=== PATIENT | female | born 1940 | race Caucasian/White ===

== ENCOUNTER 2020-05-18 13:01 | Inpatient (IN) | payer OTHER, MEDICAID ==
[~2020-05-18] VITALS: Ht 162.6 cm; Wt 48.5 kg
--- NOTE | ~2020-05-18 | CON ---
[address] [address] CONSULTATION Name: DANILO ESPINOZA Room: [address] IN M.R.#: [id number] Admission: 05/18/20 Attend Phys: Ariana Vora Discharge: Date of : 40 Report #: [id number] THIS REPORT FOR: //name// cc: Ev Peters MD, Regina MD ~ DATE OF SERVICE: 05/21/2020 HISTORY OF PRESENT ILLNESS: This is a 79-year-old female patient who was evaluated by me for generalized weakness and altered mental status. The patient does not provide much history. The patient lives with her son who provided history. He tells me that the [place] state, but her memory was poor and she has other health issues and she came to live with him. He noticed about 2-3 weeks ago, she started getting weak, weakness was all over the body. She started losing speech also, but that happened about 2-3 days ago. There was nothing he knows of which started this process. He does not know any aggravating or relieving factors. She was brought to the Emergency Room and in the Emergency Room her pCO2 was 84. Subsequently, it came down to 53.5. She also had multiple other problems and those problems include low blood pressures in 90s. He is not sure how long that is going on. She answers yes and no questions, but her speech is markedly dysarthric. It is barely understandable. She is weak in all 4 extremities, more or so in the lower extremities than upper extremities. REVIEW OF SYSTEMS: A 14-point review of system was carried out, partly from the record and partly from the patient. It looks like Cardiology is seeing this patient for atrial fibrillation. This patient has a history of acute congestive heart failure. She does have a history of peripheral vascular disease and she is being followed by Vascular Surgery and looks like this patient has a pretty severe disease on her Doppler. She does not have any prior history of stroke, but looks like she has heart failure. SHE IS ALLERGIC TO DYE. She is anticoagulated with Eliquis. She does have shortness of breath. That was a relevant 14-point review of system. PAST MEDICAL HISTORY: Positive for what looks like dementia because her memory was decreasing. FAMILY HISTORY: Positive for stroke in the patient's son, but he says the etiology is not clear. SOCIAL HISTORY: This patient has a history of smoking. She drinks alcohol only on special occasions. PHYSICAL EXAMINATION: Indicates she is alert. She tries to talk. Her speech is severely dysarthric. Sometime she can talk and say a few words. When I asked her what month it is, she could not tell me what month it is. She did not know what hospital she is in. Cranial nerve examination 2-12 [place] [address] CONSULTATION Name: DANILO ESPINOZA Room: [address] IN ..#: [id number] Admission: 05/18/20 Attend Phys: Ariana Vora Discharge: Date of : 40 Report #: [id number] She has pretty significant dysarthria, but otherwise does not appear to be showing any focality, exam is incomplete because I cannot do visual field because she is unable to cooperate. She is profoundly weak in all 4 extremities. This is more so in the lower extremities than upper extremities. She can barely lift her leg above the bed if she can do it at all, but she does reasonably well with position sense. Her reflexes are absent in the lower extremities. I believe her plantars are upgoing, but it may be withdrawal. She does [id number] reasonably well. There is no carotid bruit. There is no meningeal sign in this patient. She did not have any imaging study of the brain. IMPRESSION: This patient has profound weakness in all 4 extremities. Some of the causes or contributing factors are obvious in that regard. She has a low blood pressure. Her pCO2 was very high and looks like her chest x-ray was abnormal. All of it can be contributing to the patient's symptoms, but the patient also has pretty significant speech difficulty, because of that the possibility of myasthenia gravis brainstem stroke or spine lesion need to be excluded. I will start the patient's evaluation with MRI of the brain and lumbar spine and see what it shows. We will get some more blood workup as ordered. We will get evaluation by Vascular Surgery because looks like she has pretty severe vascular insufficiency in the lower extremities. Further workup will depend upon the outcome of this testing. I discussed all of it with the patient. I do not think she understands, I discussed with the patient's son and he wants to proceed with this. More than 50 minutes of time was spent taking care of this patient today and majority was spent counseling and coordinating. By: [id number] Xavier MD /nt
[2020-05-18 13:20] VITALS: BP 128/91
[2020-05-18 14:06] LABS: ABSOLUTE LYMPHOCYTES 1.1 thou/uL (0.8-5.3); ABSOLUTE MONOCYTES 0.4 thou/uL (0.0-1.2); ABSOLUTE NEUTROPHILS 4.9 thou/uL (1.6-8.1); BASOPHILS 0.4 %; EOSINOPHILS 0.5 %; HEMATOCRIT 34.6 % (37.0-47.0); LYMPHOCYTES 17.3 %; MCH 29.9 pg (26.0-34.0); MCHC 31.8 g/dL (28.0-37.0); MCV 94.1 fL (80.0-100.0); MONOCYTES 6.2 %; MPV 8.3 fl. (7.2-11.1); NUCLEATED RBCS 0 /100WBC; PLATELET COUNT* 247 thou/uL (150-400); POLYS 75.6 %; RBC 3.68 mil/uL (4.20-5.00); RDW-CV 16.7 % (10.5-14.5); WBC 6.4 thou/uL (4.0-11.0)
[2020-05-18 14:12] LABS: CALCIUM 9.2 mg/dL (8.5-10.1); INR 1.3; POTASSIUM 4.3 mmol/L (3.5-5.1); PROTIME 13.2 Seconds (9.20-11.50)
[2020-05-18 14:23] LABS: ALBUMIN 3.3 g/dL (3.4-5.0); TOTAL BILIRUBIN 0.7 mg/dL (<0.1-1.0); TOTAL PROTEIN 7.5 g/dL (6.4-8.2)
[2020-05-18 14:52] LABS: BE 1.2 mmol/L (-2 to +3); PCO2 44.6 mmHg (35.0-45.0); PO2 73.3 mmHg (75.0-100.0); pH 7.391 (7.340-7.450)
[2020-05-18] MEDS ORDERED: ASA81BEC PO (15:10)
[2020-05-18] MEDS ORDERED: ROSUVASTATIN CA10 MG PO (15:11)
[2020-05-18] MEDS ORDERED: TYLENOL325 M1 PO (15:12)
[2020-05-18] MEDS ORDERED: MAGNESIUM250 M1 PO (15:13)
[2020-05-18] MEDS ORDERED: GLUCOPHAGE1000 MG PO (15:14)
[2020-05-18] MEDS ORDERED: ELIQUIS5 MG PO (15:16)
[2020-05-18] MEDS ORDERED: GLIMEPIRIDE4 MG PO (15:16)
[2020-05-18] MEDS ORDERED: LISINOPRIL2.5 MG PO (15:17)
[2020-05-18] MEDS ORDERED: JARDIANCE25 MG PO (15:18)
[2020-05-18] MEDS ORDERED: BARACLUDE0.5 MG PO (15:18)
[2020-05-18 17:00] VITALS: BP 100/59
[2020-05-18 17:10] VITALS: BP 101/60
--- NOTE | 2020-05-18 19:13 | NUR ---
RECEIVED REPORT FROM ER NURSE. PT ARRIVED TO TELE FLOOR AROUND 1710, ASSUMED CARE. PT ORIENTED TO ROOM BED AND CALL LIGHT, COMMUNICATES UNDERSTANDING BUT IS FORGETFUL AND NEEDS SOME REINFORCEMENT. DILTIAZEM GTT GOING AT 10MG/HR. BP SOFT BUT STABLE. ADMISSION ASSESSMENT, HISTORY AND EDUCATION COMPLETED CHARTED. MEDS REC COMPLETED. CARDIOLOGY CONSULTED, SPOKE TO DR TROTTER. PT ABLE TO EAT DINNER. LASIX GIVEN EARLY PER ORDER BY DR TROTTER. PT CURRENTLY RESTING IN BED WATCHING TV. CALL LIGHT IS WITHIN REACH. HOURLY ROUNDING PERFORMED. FALL PRECAUTIONS IN PLACE.
[2020-05-18 20:00] VITALS: BP 111/71
[2020-05-19] VITALS: BP 127/72
[2020-05-19 01:07] LABS: CALCIUM 8.8 mg/dL (8.5-10.1); CREATININE 0.9 mg/dL (0.6-1.3); POTASSIUM 4.6 mmol/L (3.5-5.1)
[2020-05-19 04:00] VITALS: BP 136/49
[2020-05-19 05:37] LABS: BE -0.8 mmol/L (-2 to +3); PO2 123.2 mmHg (75.0-100.0); pH 7.306 (7.340-7.450)
[2020-05-19 05:44] LABS: PCO2 53.5 mmHg (35.0-45.0)
[2020-05-19 05:50] LABS: BE -5.4 mmol/L (-2 to +3)
[2020-05-19 05:54] LABS: pH 7.103 (7.340-7.450)
[2020-05-19 05:56] LABS: PCO2 84.1 mmHg (35.0-45.0); PO2 161.2 mmHg (75.0-100.0)
--- NOTE | 2020-05-19 07:30 | NUR ---
ASSUMED CARE OF PT AFTER REPORT AT 1930. PT A&OX3. FORGETFUL. VSS. PHYSICAL ASSESSMENT COMPLETED AND CHARTED. PT COMPLAINED OF SOB-O2 78% RR 40-50'S-INCREASED O2 TO 15L BUT STILL TACHYPNEIC AND O2 SAT 87%. DR SANDERS MADE AWARE WITH NEW ORDERS. PLACED ON BIPAP- O2 SAT 98%. SCHRADER CATHETER INSERTED. STOPPED CARDIZEM DRIP THIS HR GET LOW 54 BPM-STILL AFIB. DYSPHAGIA NOTED-ST CONSULT. FALL PRECAUTIONS IN PLACED. CALL LIGHT WITHIN REACH.
[2020-05-19 08:35] VITALS: BP 126/58
--- NOTE | 2020-05-19 12:13 | EKG ---
[place] [address] ELECTROCARDIOGRAM REPORT Name: DANILO ESPINOZA Emma Room: [address] ADM IN ..#: [id number] Admission: 05/18/20 Attend Phys: Kyra Almeida Discharge: Date of : 40 Date of Service: 05/18/20 1316 Report #: [id number] THIS REPORT FOR: //name// [facility] ED Test Date: 2020-05-18 Test Time: 13:16:48 Pat Name: DANILO ESPINOZA Department: Room: [facility] Gender: F [employer] Manager: HELENA : 1940 Requested By: Anselmo Hackett Order Number: [id number] MD: Guy Kaur Measurements Intervals [place] Rate: 115 P: MO: QRS: 58 QRSD: 84 T: 256 QT: 361 QTc: 500 Interpretive Statements Atrial fibrillation Paired ventricular premature complexes Low voltage, extremity leads Repol abnrm suggests ischemia, diffuse leads Baseline wander in lead(s) V4 No previous ECG available for comparison Electronically Signed On 05-19-2020 12:13:18 CDT by Guy Kaur [email or web address] <ELECTRONICALLY SIGNED> By: Db Kaur MD, FACC 05/19/20 1213 15 Db Kaur MD, FACC /EPI
[2020-05-19 15:23] VITALS: BP 130/57
[2020-05-19 16:00] VITALS: BP 101/48
--- NOTE | 2020-05-19 18:30 | NUR ---
RECEIVED REPORT. ASSUMED CARE OF PT AROUND 0730. AM ASSESSMENT AND VITALS COMPLETED CHARTED. MEDS PER EMAR. DILTIAZEM GTT RESTARTED PER CARDIOLOGY. PT ABLE TO COME OFF THE BIPAP AND BE ON 3L PER NC. APPETITE FAIR. SCHRADER IN PLACE TO DD. PT TURNED Q2HRS AND PRN. NO BM THIS SHIFT. SON AT BEDSIDE. PT CURRENTLY RESTING IN BED. CALL LIGHT IS WITHIN REACH. HOURLY ROUNDING PERFORMED.
[2020-05-19 20:00] VITALS: BP 107/46
[2020-05-19 22:16] LABS: INFLUENZA A ANTIGEN Negative (Negative); INFLUENZA B ANTIGEN Negative (Negative)
[2020-05-20] VITALS: BP 135/60
[2020-05-20 04:04] VITALS: BP 134/68
--- NOTE | 2020-05-20 05:59 | NUR ---
ASSUMED CARE OF PT AFTER REPORT AT 1930. PT A&OX3. FORGETFUL AT TIMES. VSS. PHYSICAL ASSESSMENT COMPLETED AND CHARTED. PT ON O2 AT 3L NC/BIPAP AT HS. PT TRACING AFIB ON TELE-MAINTAINE DON CARDIZEM DRIP. PT WITH SCHRADER TO DEPENDENT DRAIN. PT DENIES ANY PAIN. FALL PRECAUTIONS IN PLACE. CALL LIGHT WITHIN REACH.
[2020-05-20 08:00] VITALS: BP 111/58
--- NOTE | 2020-05-20 08:57 | NUR ---
WOUND NURSE: PATIENT SEEN THIS MORNING BY LYLY JOAQUIN TO ADDRESS CIRCULARTORY STATUS BLE AND WOUND LEFT GEAT TOE. PRESENTS ON MEDIAL ASPECT OF LEFT GREAT TOE, MEASURES 2.6 X 1.6 CM AND FULLY COVERED WITH ROUGH DRY BLACKENED STABLE ESCHAR. THERE IS NO DRAINAGE NOTED. FOOT IS COLD AND RUBOR PRESENT. CAPILLARY REFILL WAS 8 SECONDS ON THE LEFT. RIGHT FOOT WAS WARM AND CAPILLARY REFILL WAS 2 TO 3 SECONDS. APPEARS REDDENED IN COLOR. THERE WAS 2+ PITTING EDEMA ON THE RIGHT FOOT. I WAS UNABLE TO DOPPLAR PEDAL PULSES BILATERALLY. PATIENT REPORTING WOUND IS A YEAR OLD. PATIENT NOT COMPLAINING OF PAIN OR DISCOMFORT AT THIW TIME. PATIENT IS CONFUSED AND DISORIENTED AND NONTEACHEABLE WHEN ASSESSED BY THIS NURSE. SWABBED THE LEFT TOE WOUND WITH CHLORHEXIDINE SWAB AND LET DRY, THEN LEFT OPEN TO AIR.
--- NOTE | 2020-05-20 09:30 | NUR ---
ASSUMED CARE OF PT THIS AM AROUND 0715- TASSEL SNIPPER IN PLACE ORDERED, TRACING A-FIB, RATE CONTROLED ON CARDIZEM DRIP, PO CARDIZEM STARTED THIS AM PER CARDIO WITH 1ST DOSE GIVEN AND CARDIZEM TO BE D/C'D SHORTLY- PT A&O X2-3 WITH NOTED FORGETFULLNESS- CONT OF BOWEL , SCHRADER IN PLACE D/D CLEAR YELLOW URINE- Q2 HOUR TURNS IN PLACE INDICATED- LCTA, RESP EVEN AND UN-LABORED- VSS, O2 SAT 93% ON 2L VIA NC- ABD SOFT/ROUND/NON-TENDER, BS X4 QUADS- LAST BM UNKOWN AT THIS TIME- IV NOTED TO RIGHT FA WITH IV CARDIZEM INFUSSING PRESCRIBED, IV NOTED TO LEFT AC INTACT AND SL- SET UP ASSIST REQUIRED WITH MEALS, FAIR PO INTAKE NOTED THIS AM- LEFT FOOT NOTED WITH ULCER TO LEFT GREAT TOE WITH DRIED ESCHAR; WN HERE TO ASSESS WELL VACULAR WITH WC ORDERS INITIATED AND UPDATED TO MAR- ABSENT PEDAL PULSES NOTED DENISA, US ORDERED PER VASCULAR- RLE NOTED WITH GOOD CAP REFIL, LLE CAP REFIL >7 AND COOL TO TOUCH- PT DENIES ANY C/O PAIN/DISCOMFORT AT THIS TIME- CALL LIGHT AND PERSONAL BELONGINGS WITH IN REACH- HOURLY ROUNDS IN PLACE R/T SAFETY/NEEDS- ALL NEEDS MET AT THIS TIME-WCTM
--- NOTE | 2020-05-20 09:41 | NUR ---
Nutrition: Pt admitted with HF. Consult for wound on Lt great toe x1 yr. Per notes, wound to be left to open air. 2gm Na diet, fair appetite. Albumin 3.3, BG 200s. Meds: glimeperide, solumedrol, lasix. H/o PAD, afib, DM, hep B. Admit wts 115# (today's wt 109# - different than the other wts). Will follow wt trends. Will add CHO count to diet order for better BG control. Otherwise, mild risk.
--- NOTE | 2020-05-20 11:31 | NUR ---
CM spoke with Pt's son via phone. Pt has lived with them for the past month, post moving here from [place]. Pt is normally A&O, but son has noticed increased confusion with Pt. Pt uses a walker for mobility. No home o2. No hx of HH or SNF. Son indicates that Pt was recently seen at [facility] for a UTI. Therapy evals ordered. Vascular and cardiology consulted. Pt's DIL works at [employer], if Pt needs SNF/LTC that is where son would want her vs. home with HH. CM contacted [facility] and faxed initial referral. Son to bring DPOA/AD paperwork to the hospital this afternoon. Anticipate dc in 1-2 days. CM requested that [facility] initiate ins auth if able to accept.
[2020-05-20 12:36] VITALS: BP 128/60
[2020-05-20 15:16] LABS: URINE BILIRUBIN NEGATIVE (Negative); URINE BLOOD 1+ (Negative); URINE CLARITY CLEAR; URINE COLOR YELLOW; URINE GLUCOSE-RANDOM 3+ (Negative); URINE KETONES NEGATIVE (Negative); URINE LEUKOCYTES-REFLEX NEGATIVE (Negative); URINE NITRITE-REFLEX NEGATIVE (Negative); URINE PROTEIN NEGATIVE (Negative); URINE UROBILINOGEN 0.2 E.U./dl (0.2-1.0)
[2020-05-20 15:27] LABS: BACTERIA-REFLEX 1-9 Few /HPF (None Seen); CASTS None Seen /LPF (None Seen); CRYSTALS None Seen /LPF (None Seen); SQUAMOUS 0-3 Few /LPF (0-3); URINE RBC 3-10 Few /HPF (0-2); URINE WBC-REFLEX 0-5 Rare /HPF (0-5)
[2020-05-20 16:57] VITALS: BP 95/43
--- NOTE | 2020-05-20 17:06 | 2DMMODE ---
[place] [address] 2 D/M-MODE ECHOCARDIOGRAM Name: ESPINOZADANILO H Room: [address] IN .R.#: [id number] Admission: 05/18/20 Attend Phys: Kyra Almeida Discharge: Date of : 40 Date of Service: 05/20/20 1705 Report #: [id number] THIS REPORT FOR: cc: Ev Peters MD,Ev Alvarado,Michi Parker MD [facility] ~ APPROVED REPORT Study performed: 05/20/2020 14:10:09 EXAM: Comprehensive 2D, Doppler, and color-flow Echocardiogram Patient Location: Bedside BSA: 1.55 HR: 99 bpm BP: 111/58 mmHg Other Information Study Quality: Good Indications Congestive Heart Failure Atrial Fibrillation 2D Dimensions IVSd: 11.40 (7-11mm) LVOT Diam: 17.13 (18-24mm) LVDd: 40.76 mm PWd: 13.55 (7-11mm) Ascending Ao: 32.35 (22-36mm) LVDs: 43.85 (25-40mm) Aortic Root: 26.17 mm Volumes Left Atrial Volume (Systole) LA ESV Index: 55.30 mL/m2 Aortic Valve AoV Peak Antoine.: 1.15 m/s AO Peak Gr.: 5.28 mmHg LVOT Max P.60 mmHg AO Mean Gr.: 2.57 mmHg LVOT Mean P.09 mmHg LVOT Max V: 0.81 m/s AO V2 VTI: 23.96 cm LVOT Mean V: 0.48 m/s EDMOND (VTI): 1.15 cm2 LVOT V1 VTI: 11.99 [place] [address] 2 D/M-MODE ECHOCARDIOGRAM Name: DANILO ESPINOZA Room: [address] IN ..#: [id number] Admission: 05/18/20 Attend Phys: Kyra Almeida Discharge: Date of : 40 Date of Service: 05/20/20 1705 Report #: [id number] E/A Ratio: 3.03 MV Decel. Time: 136.75 ms MV E Max Antoine.: 1.01 m/s MV PHT: 39.66 ms MVA (PHT): 5.55 cm2 TDI E/Lateral E': 7.21 E/Medial E': 9.18 Medial E' Antoine.: 0.11 m/s Lateral E' Antoine.: 0.14 m/s Pulmonary Valve PV Peak Antoine.: 0.66 m/s PV Peak Gr.: 1.73 mmHg Tricuspid Valve RAP Estimate: 5.00 mmHg TR Peak Gr.: 36.75 mmHg RVSP: 41.75 mmHg PA Pressure: 41.75 mmHg Left Ventricle The left ventricle is normal size. There is normal LV segmental wall motion. There is normal left ventricular wall thickness. Left ventricular systolic function is mildly decreased. LVEF is 45%. This study is not technically sufficient to allow evaluation of the LV diastolic function due to atrial fibrillation. Right Ventricle The right ventricle is normal size. The right ventricular systolic function is normal. Atria Left atrium is moderately dilated. Right atrium is mildly dilated. Aortic Valve The aortic valve is normal in structure. No aortic regurgitation is present. There is no aortic valvular stenosis. Mitral Valve There is mitral annular calcification. Moderate to severe mitral regurgitation No evidence of mitral valve stenosis. Tricuspid Valve The tricuspid valve is normal in structure. Moderate [place] [address] 2 D/M-MODE ECHOCARDIOGRAM Name: DANILO ESPINOZA Room: [address] IN [facility]#: [id number] Admission: 05/18/20 Attend Phys: Kyra Almeida Discharge: Date of : 40 Date of Service: 05/20/20 1705 Report #: [id number] Pulmonic Valve The pulmonary valve is normal in structure. There is no pulmonic valvular regurgitation. Great Vessels The aortic root is normal in size. IVC is normal in size and collapses >50% with inspiration. Pericardium There is no pericardial effusion. Pleural effusion present. <Conclusion> The left ventricle is normal size. Left ventricular systolic function is mildly decreased. LVEF is 45%. This study is not technically sufficient to allow evaluation of the LV diastolic function due to atrial fibrillation. The right ventricle is normal size. Left atrium is moderately dilated. Right atrium is mildly dilated. The aortic valve is normal in structure. There is mitral annular calcification. Moderate to severe mitral regurgitation No evidence of mitral valve stenosis. The tricuspid valve is normal in structure. Moderate tricuspid regurgitation. IVC is normal in size and collapses >50% with inspiration. There is no pericardial effusion. There is normal LV segmental wall motion. <ELECTRONICALLY SIGNED> By: Michi Alvarado MD, FACC 05/20/201704 04 04 Michi Alvarado MD, FACC /INF
[2020-05-20 20:00] VITALS: BP 94/49
[2020-05-21] VITALS: BP 96/48
[2020-05-21 04:00] VITALS: BP 98/47
--- NOTE | 2020-05-21 04:26 | NUR ---
PT LETHARGIC. AROUSES TO NAME. ORIENTED TO PERSON AND PLACE. TURN Q 2 HRS. AFIB ON TELEMETRY. O2 AT 2 LITERS NC. DISCUSSED WITH RT, NO BIPAP TONIGHT. SCHRADER WITH YELLOW. WCTM
[2020-05-21 07:03] LABS: HEMATOCRIT 33.3 % (37.0-47.0); HEMOGLOBIN 10.9 gm/dL (12.0-15.0); MCH 30.4 pg (26.0-34.0); MCHC 32.7 g/dL (28.0-37.0); NUCLEATED RBCS 0 /100WBC; PLATELET COUNT* 272 thou/uL (150-400); RBC 3.58 mil/uL (4.20-5.00); RDW-CV 16.5 % (10.5-14.5); WBC 9.2 thou/uL (4.0-11.0)
[2020-05-21 07:10] LABS: ANION GAP 2 mmol/L (7-16); BUN 32 mg/dL (7-18); CALCIUM 8.6 mg/dL (8.5-10.1); CHLORIDE 104 mmol/L (98-107); CHOLESTEROL 136 mg/dL (<200); CO2 38 mmol/L (21-32); CREATININE 0.9 mg/dL (0.6-1.3); GLUCOSE 169 mg/dL (70-99); HDL CHOLESTEROL 48 mg/dL (>40); LDL CHOLESTEROL 75 mg/dL (<100); POTASSIUM 3.2 mmol/L (3.5-5.1); SODIUM 144 mmol/L (136-145); TC:HDL 2.8 Ratio (Not establshd); TRIGLYCERIDE 68 mg/dL (<150); VLDL 14 mg/dL (<40)
[2020-05-21 07:14] LABS: SERUM ASSESSMENT Clear
[2020-05-21 07:44] VITALS: BP 103/50
[2020-05-21 07:56] LABS: ABSOLUTE LYMPHOCYTES 0.6 thou/uL (0.8-5.3); ABSOLUTE MONOCYTES 0.5 thou/uL (0.0-1.2); ABSOLUTE NEUTROPHILS 8.1 thou/uL (1.6-8.1); PLATELET ESTIMATE ADEQUATE
[2020-05-21 07:57] LABS: ANISOCYTOSIS 1+; HYPOCHROMASIA 1+; OVALOCYTES 1+; POIKILOCYTOSIS 1+
--- NOTE | 2020-05-21 08:03 | CON ---
[address] [address] CONSULTATION Name: ESPINOZADANILO Carter Room: [address] IN .R.#: [id number] Admission: 05/18/20 Attend Phys: Ariana Vora Discharge: Date of : 40 Report #: [id number] THIS REPORT FOR: //name// cc: Ev Peters MD, Regina MD ~ DATE OF SERVICE: 05/19/2020 CARDIOLOGY CONSULTATION HISTORY OF PRESENT ILLNESS: I was asked by Dr. Almeida to see this 79-year-old white female in cardiology consultation for evaluation and treatment of atrial fibrillation with a rapid ventricular response and congestive heart failure. Unfortunately, this lady cannot give a history. She is currently on BiPAP and she has been confused today. She will nod her head, but she will not try to answer, but it is not clear that she is answering correctly anyway. I did review the records from the ER doctor and Dr. Almeida's reports. Those were largely historically obtained from the son. He is not here now. This lady apparently has a history of atrial fibrillation as she is on Eliquis. She came in because of weakness about 2 weeks ago, runny nose, wheezing, cough, palpitations, fatigue, shortness of breath, loss of appetite. She cannot give any history herself. PAST MEDICAL HISTORY: Apparently includes peripheral vascular disease, hypercholesterolemia, essential hypertension and non-insulin dependent diabetes mellitus as she is on medication for those apparently. HOME MEDICATIONS: Include aspirin 81 mg daily, Crestor 10 mg daily, magnesium one tablet daily, metformin 1000 mg b.i.d., glimepiride 4 mg daily, Eliquis 5 mg b.i.d. and lisinopril 40 mg daily at bedtime. REVIEW OF SYSTEMS: Currently unobtainable. Any further past medical history is also obtainable. FAMILY HISTORY: Unobtainable. ALLERGIES: THIS LADY IS ALLERGIC TO CONTRAST DYE, HOWEVER. SOCIAL HISTORY: Unobtainable. PHYSICAL EXAMINATION: GENERAL: She presents as a well-developed, but somewhat slender white female, in no acute distress. She is 5 feet 4 inches tall and weighed 114 pounds when she came in. VITAL SIGNS: Her pulse was 74 and irregular, blood pressure is 136/49, respirations 16 and regular, temperature is 97.6. HEENT: Her head [place] [address] CONSULTATION Name: DANILO ESPINOZA Room: [address]#: [id number] Admission: 05/18/20 Attend Phys: Ariana Vora Discharge: Date of : 40 Report #: [id number] NECK: Supple. There is no jugular venous distention or hepatojugular reflux. Thyroid is not enlarged. There is no adenopathy. SKIN: Warm and dry. Mucous membranes are moist. LUNGS: Demonstrate decreased breath sounds in both bases. HEART: Revealed normal first and second heart sound. There was no rubs or gallops. PMI is not displaced. The rhythm was irregularly irregular. There was a 2/6 systolic ejection type murmur heard in the left side of the chest near the anterior axillary line. I suspect this may represent a papillary muscle dysfunction murmur. ABDOMEN: Soft, flat and nontender. No palpable masses, no organomegaly. EXTREMITIES: Reveal no cyanosis or clubbing. There was 2+ ankle and pedal edema. LABORATORY DATA: Her chest x-ray showed bilateral lower lobe predominance with interstitial opacities, either representing pulmonary edema versus an atypical or viral pneumonia. There was a small to moderate size left pleural effusion with left basilar atelectasis. Her troponins were negative x 3. Her BNP was 5753. Of note is that she required BiPAP. In crematorium operator hours today, her pCO2 went up to 53, her pH was 7.305 and her pO2 was 123, so she was retaining CO2. This lady does have a history of smoking a pack a day for 60 years. Her EKG shows atrial fibrillation with rapid ventricular response, initial heart rate was 115, low voltage in the extremity leads. There were nonspecific ST-T abnormalities. Ischemia cannot be excluded. Note that she was started on Cardizem drip and her heart rate ultimately got down in the 50s and it was stopped at like 4:00 a.m.; however, heart rate has come up into the 80s now and I am going to resume it at half the dose that she was on when the heart rate was slower and the nurses to have instructions to titrate the diltiazem according to pulse and blood pressure. IMPRESSION: 1. Atrial fibrillation with rapid ventricular response. 2. Congestive heart failure of uncertain type or chronicity. I suspect we will find chronic systolic heart failure. 3. Hypercholesterolemia. 4. Peripheral vascular disease. 5. Essential hypertension. 6. Oot-vbgxlsg-jrirpesrv diabetes mellitus. 7. CO2 retention, possible chronic obstructive pulmonary disease. RECOMMENDATIONS: Control heart rate and I would diurese her and check an echo. She is getting Lasix twice a day. She may ultimately need a stress test. [address] [place] [address] CONSULTATION Name: DANILO ESPINOZA Room: [address] IN [facility]#: [id number] Admission: 05/18/20 Attend Phys: Ariana Vora Discharge: Date of : 40 Report #: [id number] Thank you very much for asking me to see the patient. If there are any questions, please feel free to contact me. <ELECTRONICALLY SIGNED> By: Db Kaur MD, FACC 05/21/20 0803 [id number] [id number]. Guy Kaur MD, FACC /nt
--- NOTE | 2020-05-21 09:08 | NUR ---
ASSUMED CARE OF PT THIS AM AROUND 07- PACKAGING INSPECTOR IN PLACE ORDERED, TRACING A-FIB/RATE CONTROLED- UPON ASSESSMENT PT NOTED TO BE RESTING IN BED- PT A&O X2-3 WITH NOTED INTERMITENT CONF- INCONT OF BOWEL, SCHRADER IN PLACE D/D CLEAR YELLOW URINE-Q [address] INDICATED- LCTA, DYSPNEA NOTED ON EXERTION- VSS, O2 SAT 99% ON 2L VIA NC- ABD SOFT/FLAT/NON-TENDER, BS X4 QUADS-SET UP ASSIST REQUIRED WITH MEALS, POOR PO INTAKE NOTED-BS MONITORED ORDERED WITH SSI PRESCRIBED- TRACE EDEMA NOTED TO BLE- PT DENIES ANY C/O PAIN/DISCOMFORT AT THIS TIME-CALL LIGHT AND PERSONAL BELONGINGS WITH IN REACH- BED ALARM IN PLACE AND WORKING FOR PT SAFETY/NEEDS- ALL NEEDS MET AT THIS TIME-WCTM
[2020-05-21 11:47] VITALS: BP 108/46
--- NOTE | 2020-05-21 13:48 | NUR ---
Plan CT angiogram tomorrow with vascular. Anticipate dc to home in few days with HH, plan to transition to SNF once [facility] starts taking Pt's insurance 05/26, HH to assist with transition.
[2020-05-21 16:34] VITALS: BP 109/49
[2020-05-21 20:00] VITALS: BP 106/50
[2020-05-22] VITALS: BP 96/53
[2020-05-22 04:00] VITALS: BP 102/58
[2020-05-22 05:07] LABS: IgA 574 mg/dL (64-422); IgG 780 mg/dL (586-1602); IgM 37 mg/dL (26-217)
--- NOTE | 2020-05-22 05:38 | NUR ---
CALLED TO PT ROOM. PT IS 10-15 SECOND PERIODS OF APNEA ON NC AT 2LPM. SATS IN 70'S. NOT RESPONSIVE TO STERNAL RUB. PT PLACED ON BIPAP AT 100%. PT NURSE AT BEDSIDE. PT SATS 100%. NURSING COOK HELPER FRUIT AT BEDSIDE.
--- NOTE | 2020-05-22 05:59 | NUR ---
PT BECAME UNRESPONSIVE O2 SATS 50S. PLACED ON BIPAP. FAMILY NOTIFIED. SPOKE WITH SON LOTTIE. HE WILL BE IN TO SEE PT.
--- NOTE | 2020-05-22 07:47 | NUR ---
DR WEBER NOTIFIED OF CHANGES AND MORPHINE 1 MG FOR AIR HUNGER ORDERED AND GIVEN. PT RESTED FOR TWO HOURS ON BIPAP AND WOKE UP PULLING BIPAP OFF. BIPAP REMOVED AND O2 PLACED ON PT. PT CONTINUOUSLY ATTEMPTING TO PULL OF BIPAP AND GET OOB. FAMILY IN TO SEE PT. REPORT GIVEN DR SANDERS NOTIFED OF PTS AGGITATED STATE.
--- NOTE | 2020-05-22 11:15 | NUR ---
PT NONRESPONSIVE UPON ASSESSMENT. AGONAL BREATHING NOTED.2L NC IN PLACE. AFIB WITH RATE AT 103 UPON ASSESSMENT. FAMILY AT BEDSIDE. PT MADE COMFORT CARE. NO PALPABLE PULSE,RESPIRATIONS AT 0935. PHYSICIAN CALLED.APPROPRIATE PROCEDURE FOLLOWED.
[2020-05-22 13:08] LABS: ANA INTERPRETATION Negative (Negative)
== END 2020-05-22 09:36 | DRG 64 ==
LOC: M.ERS 13:01 → M.TBA-ER 15:05 → M.2W 15:05
PROVIDERS: Emergency Medicine Emergency Medical Services; Internal Medicine; Internal Medicine Cardiovascular Disease; Psychiatry & Neurology Neuromuscular Medicine; ADMIT Internal Medicine; ATTEND Internal Medicine
PROC: 5A09357 Assistance with Respiratory Ventilation, Less than 24 Consecutive Hours, Continuous Positive Airway Pressure (ICD-10-PCS; principal; 2020-05-19)
PROC: 5A09357 Assistance with Respiratory Ventilation, Less than 24 Consecutive Hours, Continuous Positive Airway Pressure (ICD-10-PCS; 2020-05-20)
PROC: 5A09357 Assistance with Respiratory Ventilation, Less than 24 Consecutive Hours, Continuous Positive Airway Pressure (ICD-10-PCS; 2020-05-22)
DX: I63.89 Other cerebral infarction (principal); J69.0 Pneumonitis due to inhalation of food and vomit; I50.21 Acute systolic (congestive) heart failure; J96.01 Acute respiratory failure with hypoxia; E43 Unspecified severe protein-calorie malnutrition; J96.02 Acute respiratory failure with hypercapnia; J15.6 Pneumonia due to other Gram-negative bacteria; Z68.1 Body mass index [BMI] 19.9 or less, adult; I48.20 Chronic atrial fibrillation, unspecified; B19.10 Unspecified viral hepatitis B without hepatic coma; J44.1 Chronic obstructive pulmonary disease with (acute) exacerbation; I73.9 Peripheral vascular disease, unspecified; E78.00 Pure hypercholesterolemia, unspecified; I11.0 Hypertensive heart disease with heart failure; I27.20 Pulmonary hypertension, unspecified; F03.90 Unspecified dementia, unspecified severity, without behavioral disturbance, psychotic disturbance, mood disturbance, and anxiety; E11.51 Type 2 diabetes mellitus with diabetic peripheral angiopathy without gangrene; I08.1 Rheumatic disorders of both mitral and tricuspid valves; Z51.5 Encounter for palliative care; Z20.828 Contact with and (suspected) exposure to other viral communicable diseases; Z66 Do not resuscitate; Z79.01 Long term (current) use of anticoagulants; Z79.84 Long term (current) use of oral hypoglycemic drugs; Z79.82 Long term (current) use of aspirin; Z79.899 Other long term (current) drug therapy; Z91.041 Radiographic dye allergy status; Z86.718 Personal history of other venous thrombosis and embolism; Z87.891 Personal history of nicotine dependence